=== PATIENT | male | born 1955 | race Caucasian/White ===

== ENCOUNTER 2023-04-11 09:46 | Emergency (ER) | payer MEDICARE, OTHER ==
[2023-04-11 10:42] LABS: BASOPHILS % (AUTO) 0.2 %; EOSINOPHILS % (AUTO) 0.3 %; HCT - HEMATOCRIT 46.1 % (42.0-52.0); HGB - HEMOGLOBIN 16.1 g/dL (14.0-18.0); LYMPHOCYTES % (AUTO) 7.5 %; MEAN CORPUSCULAR HEMOGLOBIN 32.8 pg (27.0-31.0); MEAN CORPUSCULAR HGB CONC 34.9 g/dL (32.0-36.0); MEAN CORPUSCULAR VOLUME 93.9 fL (80.0-94.0); MEAN PLATELET VOLUME 9.2 fL (7.4-11.4); MONOCYTES # (AUTO) 0.7 10^3/uL (0.0-1.0); NEUTROPHILS # (AUTO) 11.3 10^3/uL (1.5-6.6); NEUTROPHILS % (AUTO) 86.5 %; PLT - PLATELET COUNT 213 10^3/uL (130-450); RED BLOOD COUNT 4.91 10^6/uL (4.70-6.10); RED CELL DISTRIBUTION WIDTH 12.7 % (12.0-15.0); WHITE BLOOD COUNT 13.1 x10^3/uL (4.8-10.8)
[2023-04-11 10:52] LABS: ALBUMIN 4.4 g/dL (3.2-5.5); ALBUMIN/GLOBULIN RATIO 1.4 (1.0-2.2); BILIRUBIN,TOTAL 0.6 mg/dL (0.2-1.0); CALCIUM 9.9 mg/dL (8.5-10.3); CREATININE 1.4 mg/dL (0.6-1.3); POTASSIUM 4.1 mmol/L (3.5-4.5); TOTAL PROTEIN 7.5 g/dL (6.4-8.9)
[2023-04-11] MEDS ORDERED: ACETAMINOPHEN 1,000 MG/100 ML 1,000 MG/100 ML BAG IV ONE (11:17)
--- NOTE | 2023-04-11 11:19 | ED Physician Documentation ---
PD HPI ABD PAIN - Stated complaint Stated Complaint: NAUSEA,CHILLS,HHR - Chief complaint Chief Complaint: Abd Pain - History obtained from History obtained from: Patient, Family - Additional information Additional information: 67-year-old male with history of hearing loss s/p cochlear implant presents by private vehicle from home for left-sided flank and back pain since last night. Associated nausea with vomiting. Patient took Tylenol at home, but subsequently had an episode of emesis and presented to the ER. Has never felt anything like this before. Denies fevers, chills, dysuria, hematuria, other complaints at this time. Also reports feeling that he may be constipated. Review of Systems Constitutional: denies: Fever, Chills GI: reports: Abdominal Pain, Nausea, Vomiting, Constipation. denies: Diarrhea : denies: Dysuria, Frequency, Hesitancy Musculoskeletal: denies: Neck pain, Back pain, Extremity pain Neurologic: denies: Generalized weakness, Focal weakness, Numbness PD PAST MEDICAL HISTORY - Past Medical History Past Medical History: Yes Cardiovascular: Hypertension - Past Surgical History Past Surgical History: Yes Ortho: Hip replacement - Allergies Allergies/Adverse Reactions: Allergies Allergy/AdvReac Type Severity Reaction Status Date / Time rosuvastatin [From Crestor] AdvReac Unknown Verified 04/11/23 10:22 - Social History Does the pt smoke?: No Smoking Status: Never smoker PD ED PE NORMAL - Vitals Vital signs reviewed: Yes - General General: Alert and oriented X 3, No acute distress, Well developed/nourished - Cardiac Cardiac: RRR, Strong equal pulses - Respiratory Respiratory: No respiratory distress, Clear bilaterally - Abdomen Abdomen: Soft, Non tender, Non distended - Back Back: No CVA TTP, No spinal TTP - Derm Derm: Normal color, Warm and dry, No rash - Extremities Extremities: No deformity, No tenderness to palpate, Normal ROM s pain, No edema - Neuro Neuro: Alert and oriented X 3, flavorings compounder 2-12 intact, No motor deficit, Normal speech - Psych Psych: Normal mood, Normal affect Results - Vitals Vitals: Vital Signs - 24 hr 04/11/23 04/11/23 04/11/23 10:20 11:43 13:59 Temperature 36.5 C Heart Rate 65 93 78 Respiratory 20 18 18 Rate Blood Pressure 130/76 126/80 122/83 H O2 Saturation 98 96 99 Oxygen O2 Source Room air - Labs Labs: Laboratory Tests 04/11/23 04/11/23 04/11/23 10:31 10:31 11:45 WBC 13.1 H RBC 4.91 Hgb 16.1 Hct 46.1 MCV 93.9 MCH 32.8 H MCHC 34.9 RDW 12.7 Plt Count 213 MPV 9.2 Neut # (Auto) 11.3 H Lymph # (Auto) 1.0 L Orange # (Auto) 0.7 Eos # (Auto) 0.0 Baso # (Auto) 0.0 Absolute Nucleated RBC 0.00 Nucleated RBC % 0.0 Sodium 138 Potassium 4.1 Chloride 104 Carbon Dioxide 25 Anion Gap 9.0 BUN 20 Creatinine 1.4 H Estimated GFR (MDRD) 50 L Glucose 119 H Calcium 9.9 Total Bilirubin 0.6 AST 15 ALT 20 Alkaline Phosphatase 72 Total Protein 7.5 Albumin 4.4 Globulin 3.1 Albumin/Globulin Ratio 1.4 Lipase 12 Urine Color YELLOW Urine Clarity CLEAR Urine pH 5.5 Ur Specific [place] >=1.030 H Urine Protein NEGATIVE Urine Glucose (UA) NEGATIVE Urine Ketones NEGATIVE Urine Occult Blood MODERATE H Urine Nitrite NEGATIVE Urine Bilirubin NEGATIVE Urine Urobilinogen 0.2 (NORMAL) Ur Leukocyte Esterase NEGATIVE Urine RBC 6-10 H Urine WBC 6-10 H Ur Squamous Epith Cells RARE Squamous Urine Bacteria Rare Urine Mucus Few Strands Ur Microscopic Review INDICATED Urine Culture Comments NOT INDICATED PD Medical Decision Making - ED course Complexity details: reviewed results, re-evaluated patient, considered differential, d/w patient ED course: Well-appearing patient with left-sided flank and back pain for 1 day. Patient resting comfortably in ED bed, no distress, reports minimal left-sided pain currently but vomiting and nausea has resolved. Will order CT of the abdomen and pelvis as well as laboratory work. Laboratory work is reviewed, mild elevation in creatinine, no priors for comparison. Patient resting comfortably, pain is well-controlled with IV Tylenol. CT of the abdomen and pelvis shows mild stranding around the left kidney as well as a small stone in the lumen of the bladder. This is likely the source of patient's pain. Urinalysis shows blood but no evidence of infection. Patient and informed at bedside of results. I explained that stone passage was likely the source of patient's pain and he will hopefully have no further episodes of left-sided flank pain from the stone. Patient states that he already is followed by urology for his prostate and is on Flomax. He declines any pain or nausea medications for home. Discharged stable condition. ED return precautions discussed at bedside. Departure - Departure Disposition: 01 Home, Self Care Clinical Impression: Renal colic Condition: Stable Instructions: ED Stone Renal W Colic Comments: Your CAT scan today showed a 2 mm stone in the bladder as well as small swelling behind the left kidney. I do believe that you passed a small kidney stone as the cause of your left-sided flank pain. Your urinalysis showed some blood but no infection, which is also consistent with kidney stone. Be sure to drink plenty of fluids, take Tylenol as needed for any additional pain. Please follow-up with your urologist. Forms: PCP List Discharge Date/Time: 04/11/23 14:00
[2023-04-11 11:50] LABS: BILIRUBIN,URINE NEGATIVE (NEGATIVE); GLUCOSE, URINE (UA) NEGATIVE (NEGATIVE); KETONES,URINE (UA) NEGATIVE (NEGATIVE); LEUKOCYTE ESTERASE, URINE NEGATIVE (NEGATIVE); NITRITE,URINE NEGATIVE (NEGATIVE); OCCULT BLOOD,URINE MODERATE (NEGATIVE); PH,URINE 5.5 PH (5.0-7.5); PROTEIN,URINE NEGATIVE (NEGATIVE); UROBILINOGEN,URINE 0.2 (NORMAL) E.U./dL (NORMAL)
[2023-04-11 12:02] LABS: CLARITY,URINE CLEAR (CLEAR); SQUAMOUS EPITHELIAL CELL,UR RARE Squamous (<= Few)
[2023-04-11 12:03] LABS: BACTERIA,URINE Rare /HPF (None Seen); MUCUS,URINE Few Strands
--- NOTE | 2023-04-11 12:54 | CT Report ---
PROCEDURE: ABDOMEN/PELVIS WO INDICATIONS: LLQ/L FLANK PAIN TECHNIQUE: A CT scan of the abdomen and pelvis was performed without the use of intravenous contrast. Images we re recorded and evaluated at appropriate window settings. Reformats: coronal and sagittal. For radiat ion dose reduction, the following was used: automated exposure control, adjustment of mA and/or kV ac cording to patient size. COMPARISON: None FINDINGS: Image quality: Diagnostic Lower chest: Lower lungs are unremarkable. Mild to moderate hiatal hernia. Coronary calcifications. Liver: On this noncontrast study, the liver is unremarkable. Gallbladder and biliary system: Gallbladder is absent. No pathologic biliary ductal dilation Pancreas: Unremarkable Spleen: Nonenlarged Adrenals: No nodules Kidneys: There are scattered renal cysts. Nonobstructing right calcified stones are present. No right hydronephrosis. Slightly greater renal edema on the left with perinephric stranding. No obstructing calcified stones identified however. No significant collecting system dilation Vessels and lymph nodes: No abdominal aortic aneurysm. There are atherosclerotic calcifications. No p athologic lymph nodes by size criteria. Bowel and peritoneum: No evidence of small bowel obstruction. Appendix is nondilated. No significant inflammatory changes in the sigmoid colon or lower descending colon. Body wall: Unremarkable Pelvis: There may be a tiny bladder stone. Prostate is not well evaluated on this study. There is pro statomegaly and heterogeneity There is metallic artifact in the pelvis Bones: Right hip arthroplasty. Degenerative changes. IMPRESSION: Left renal edema and perinephric fat stranding, asymmetric the right side. No significant collecting system dilation or obstructing stone. Correlate for urinalysis for infection. A recently passed stone is also possible. A 2 mm stone is seen in the posterior bladder. Other findings as above. Reviewed by: Russ Giordano MD on 04/11/2023 12:53 PM PST Approved by: Russ Giordano MD on 04/11/2023 12:53 PM PST Station ID: [id number]
[2023-04-11 14:05] VITALS: BP 122/83; O2SAT 99
== END 2023-04-11 14:00 | disposition home or self-care (01) ==
LOC: ED 09:46
DX: N23 Unspecified renal colic (principal); I10 Essential (primary) hypertension
CPT/HCPCS: 36415; 74176; 80053; 81001; 83690; 85025; 96365; 99283; 99284; J0131; 81003; 87086